=== PATIENT | male | born 1980 | race Caucasian/White ===

== ENCOUNTER 2018-03-01 08:29 | Emergency (ER) | payer OTHER ==
[~2018-03-01] VITALS: Ht 172.7 cm; Wt 104.3 kg
--- NOTE | 2018-03-01 08:29 | NUR ---
Patient BIBA to bed 9 at this time.
[2018-03-01 08:34] VITALS: BP 145/85
[2018-03-01] MEDS ORDERED: DICYCLOMINE HCL LIQUID 20 MG, ALUMINUM HYD/MAG/SIMETHICONE 30 ML, LIDOCAINE VISCOUS 2% ... PO ONE ×3 (08:40)
[2018-03-01] MEDS ORDERED: ONDANSETRON 4 MG ODT PO ONE (08:40)
--- NOTE | 2018-03-01 08:41 | NUR ---
PATIENT PRESENTS TO ED WITH brought in by ems from pt's home c/o epigastric burning pain with repeated n/v --also loose stools x 3 days . . DENIES N/V/D; SKIN IS PINK/WARM/DRY; AAOX4 WITH EVEN AND STEADY GAIT; LUNGS CLEAR BL; HR EVEN AND REGULAR; PT DENIES ANY FEVER, CP, SOB, OR COUGH AT THIS TIME; PATIENT STATES PAIN OF 10/10 AT THIS TIME; VSS; PATIENT POSITIONED FOR COMFORT; HOB ELEVATED; BEDRAILS UP X2; BED DOWN. ER MD MADE AWARE OF PT STATUS.
[2018-03-01] MEDS ORDERED: NACL 0.9% 1,000 ML IV SCH (08:46)
[2018-03-01] MEDS ORDERED: ONDANSETRON 4 MG/2 ML VIAL IVP ONE ×2 (08:50→09:40)
[2018-03-01] MEDS ORDERED: KETOROLAC 30 MG/ML VIAL IVP ONE (08:50)
--- NOTE | 2018-03-01 09:12 | NUR ---
blood drawn at iv start---handed to Yessy
[2018-03-01 09:14] LABS: BASOPHILS % (AUTO) 0.4 % (0.0-2.0); EOSINOPHILS % (AUTO) 0.1 % (0.0-4.0); HEMOGLOBIN 15.6 g/dL (12.0-18.0); LYMPHOCYTES # (AUTO) 1.2 K/uL (2.0-11.5); LYMPHOCYTES % (AUTO) 12.4 % (20.5-51.1); MEAN CORPUSCULAR HEMOGLOBIN 31 pg (27-31); MEAN CORPUSCULAR HGB CONC 34 g/dL (33-37); MONOCYTES # (AUTO) 0.4 K/uL (0.8-1.0); MONOCYTES % (AUTO) 4.4 % (1.7-9.3); NEUTROPHILS # (AUTO) 7.9 K/uL (1.8-7.7); NEUTROPHILS % (AUTO) 82.7 % (42.2-75.2); PLATELET COUNT (AUTO) 308 K/uL (140-450); RED BLOOD CELL COUNT(AUTO) 5.11 MIL/uL (4.20-6.10); RED CELL DISTRIBUTION WIDTH 13.8 % (11.6-13.7); WHITE BLOOD COUNT (AUTO) 9.5 K/uL (4.8-10.8)
[2018-03-01 09:32] LABS: ALBUMIN 4.5 g/dL (3.4-5.0); ANION GAP 15.9 (8-16); CARBON DIOXIDE 23.4 mmol/L (21-32); CREATININE 1.1 mg/dL (0.7-1.3); POTASSIUM 3.3 mmol/L (3.5-5.1); TOTAL BILIRUBIN 0.5 mg/dL (0.0-1.0)
[2018-03-01] MEDS ORDERED: MORPHINE SULFATE 4 MG/ML SYR IVP ONE (09:40)
--- NOTE | 2018-03-01 10:43 | NUR ---
DENIES PAIN AT THIS TIME, NO N/V DIET CHANGE SHEET WENT OVER AND HANDED TO PT AND MOTHER Patient discharged with v/s stable. Written and verbal after care instructions given and explained. Patient alert, oriented and verbalized understanding of instructions. Ambulatory with steady gait. All questions addressed prior to discharge. ID band removed. Patient advised to follow up with PMD. Rx of NORCO/MOTRIN/IMODIUM/ZOFRAN/PRILOSEC given. Patient educated on indication of medication including possible reaction and side effects. Opportunity to ask questions provided and answered.
[2018-03-01 10:44] VITALS: BP 132/74
== END 2018-03-01 10:44 | disposition home or self-care (01) ==
LOC: MED 08:29
DX: R10.13 Epigastric pain (principal); R11.2 Nausea with vomiting, unspecified; R19.7 Diarrhea, unspecified; K21.9 Gastro-esophageal reflux disease without esophagitis
CPT/HCPCS: 36415; 80053; 83690; 85025; 96361; 96374; 96375; 96376; 99284; J1885; J2270; J2405; J7030; S0119